=== PATIENT | female | born 1945 ===

== ENCOUNTER 2020-03-22 09:52 | Outpatient (CLI) | payer OTHER ==
[~2020-03-22 09:52] MED LIST: CIPRO500 MG PO; CRESTOR20 MG PO; ESTRACE42.5 GM VG; NORVASC5 MG PO; PREVACID30 MG PO; SYNTHROID88 MCG PO; TYLENOL-CODEINE1 TAB PO; [UNRECOGNIZED DRUG - OTHER] PO
== END 2020-03-22 09:56 | disposition home or self-care (01) ==
LOC: SONOGRAMA 09:52
PROVIDERS: ATTEND Pathology Anatomic Pathology & Clinical Pathology
DX: E04.1 Nontoxic single thyroid nodule (principal)

== ENCOUNTER 2023-01-04 09:06 | Outpatient (CLI) | payer OTHER | END 2023-01-04 09:15 | disposition home or self-care (01) | LOC: TOM 09:06 | PROVIDERS: ATTEND Internal Medicine Gastroenterology | DX: R19.5 Other fecal abnormalities (principal); Z86.010 Personal history of colon polyps; K57.30 Diverticulosis of large intestine without perforation or abscess without bleeding ==